=== PATIENT | female | born 1980 | race Native Hawaiian/Other Pacific Islander ===

== ENCOUNTER 2022-07-05 16:08 | Emergency (ER) | payer OTHER ==
[~2022-07-05] VITALS: Ht 175.3 cm; Wt 77.1 kg
[2022-07-05 16:08] VITALS: TEMP 98
[2022-07-05 16:29] LABS: PLATELET COUNT 302 K/uL (152-353)
[2022-07-05 16:35] LABS: POTASSIUM 4.5 mmol/L (3.6-5.2); SODIUM 140 mmol/L (136-145)
[2022-07-05 16:51] LABS: PARTIAL THROMBOPLASTIN TIME 25.4 SECONDS (24.5-33.6)
[2022-07-05 17:30] VITALS: BP 143/83
== END 2022-07-05 17:48 | disposition home or self-care (01) ==
LOC: ED 16:08
PROVIDERS: Emergency Medicine
DX: R07.89 Other chest pain (principal)
CPT/HCPCS: 36415; 80053; 82550; 83880; 84484; 85027; 85379; 85610; 85730; 93005; 99283